=== PATIENT | female | born 1975 | race Caucasian/White ===

== ENCOUNTER → 2023-01-26 11:05 | Outpatient (BNVA) | payer OTHER, MEDICAID, SELFPAY | PROVIDERS: Visit Provider Nurse Practitioner | DX: R30.0 Dysuria (principal); Z87.440 Personal history of urinary (tract) infections; K92.1 Melena; R53.83 Other fatigue; R10.9 Unspecified abdominal pain; Z12.39 Encounter for other screening for malignant neoplasm of breast | CPT/HCPCS: 80053; 81000; 84443; 85025; 87086 ==

== ENCOUNTER 2023-02-11 08:29 | Outpatient (CLI) | payer OTHER, MEDICAID, SELFPAY ==
--- NOTE | 2023-02-11 08:30 | US_ITS ---
WS: [id number] Complete ABDOMINAL ULTRASOUND HISTORY: R10.9 - Unspecified abdominal pain COMPARISON: None available. Liver: 15.6 cm in length. Normal size liver. Mild coarse echotexture throughout the liver. Mild hepat ic steatosis. Portal Vein: Normal hepatopetal flow with monophasic waveform. Gallbladder: Normally distended gallbladder with no stones or wall thickening. CBD: 0.3 cm Pancreas: Normal size and echogenicity. Right kidney: 12.6 cm x 5.1 x 5.3 cm. Cortex:0.9 cm. Normal size and echogenicity. No hydronephrosis or mass. Left kidney: 12.1 cm x 4.4 cm x 4.7 cm. Cortex: 0.7 cm. Normal size and echogenicity. No hydronephrosis or mass. Spleen: Normal. 10.10 cm in length. Aorta and IVC: Unremarkable abdominal aorta and IVC. Impression: 1. Normal gallbladder. 2. Normal size liver with mild hepatic steatosis. 3. Negative kidneys.
--- NOTE | 2023-02-11 09:10 | MM_ITS ---
WS: [id number] Bilateral screening 3D tomosynthesis digital mammogram, 02/11/2023 Clinical Data: Z12.39 - Encounter for other screening for malignant neop... Comparison: 06/28/2012 Findings: The breast parenchymal pattern shows heterogeneous density. No spiculated masses or clustered calcifi cations are seen. There are no secondary signs of carcinoma. Impression: 1. Negative bilateral mammogram unchanged. 2. Recommend annual screening mammograms. MM/[id number] BIRADS: 1-Negative FOLLOW UP: 1 Year Follow-up The CAD weight checker was used.
--- NOTE | 2023-02-11 09:15 | US_ITS ---
WS: [id number] US pelv w/transvag [id number] HISTORY: R10.9 - Unspecified abdominal pain COMPARISON: None available. Prior hysterectomy. No midline mass. No free fluid. Right ovary: RIGHT uterectomy. No adnexal mass. Left ovary: 4.0 cm x 3.6 cm x 2.5 cm. Normal size and vascularity, no cystic or solid masses. No free fluid in the cul-de-sac. IMPRESSION: 1. No RIGHT adnexal mass. Status post RIGHT oophorectomy. 2. Prior hysterectomy. 3. No pelvic masses.
== END 2023-02-11 08:30 | disposition home or self-care (01) ==
PROVIDERS: PCP Nurse Practitioner; Visit Provider Nurse Practitioner
DX: Z12.31 Encounter for screening mammogram for malignant neoplasm of breast (principal); R10.9 Unspecified abdominal pain; Z90.721 Acquired absence of ovaries, unilateral; Z90.710 Acquired absence of both cervix and uterus; K76.0 Fatty (change of) liver, not elsewhere classified
CPT/HCPCS: 76700; 76830; 76856; 77063; 77067

== ENCOUNTER → 2023-02-17 09:59 | Outpatient (BNVA) | payer OTHER, MEDICAID, SELFPAY | PROVIDERS: PCP Nurse Practitioner; Referring Provider Nurse Practitioner; Visit Provider Nurse Practitioner | DX: R53.83 Other fatigue (principal) | CPT/HCPCS: 80053 ==

== ENCOUNTER → 2023-05-07 11:25 | Outpatient (BNVA) | payer OTHER, MEDICAID, SELFPAY | PROVIDERS: PCP Nurse Practitioner; Visit Provider Nurse Practitioner Family | DX: N39.0 Urinary tract infection, site not specified (principal); R39.9 Unspecified symptoms and signs involving the genitourinary system | CPT/HCPCS: 81000; 87077; 87086; 87184 ==